=== PATIENT | male | born 1995 | race Caucasian/White ===

== ENCOUNTER 2020-07-06 13:17 | Emergency (ER) | payer OTHER ==
[~2020-07-06] VITALS: Ht 188 cm; Wt 129.3 kg
[2020-07-06 13:40] VITALS: BP 139/64
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
[2020-07-06 14:36] VITALS: BP 139/64
--- NOTE | 2020-07-06 14:37 | NUR ---
Patient discharged with v/s stable. Written and verbal after care instructions given and explained. Patient alert, oriented and verbalized understanding of instructions. Ambulatory with steady gait. All questions addressed prior to discharge. ID band removed. Patient advised to follow up with PMD. Rx of IBUPROFEN, FLEXIRIL, LIDODERM given. Patient educated on indication of medication including possible reaction and side effects. Opportunity to ask questions provided and answered.
== END 2020-07-06 14:37 | disposition home or self-care (01) ==
LOC: MED 13:17
DX: S16.1XXA Strain of muscle, fascia and tendon at neck level, initial encounter (principal); S46.811A Strain of other muscles, fascia and tendons at shoulder and upper arm level, right arm, initial encounter; Z88.0 Allergy status to penicillin; V89.2XXA Person injured in unspecified motor-vehicle accident, traffic, initial encounter; Y93.89 Activity, other specified; Y92.89 Other specified places as the place of occurrence of the external cause; Y99.8 Other external cause status
CPT/HCPCS: 99283

== ENCOUNTER 2021-07-28 15:14 | Emergency (ER) | payer SELFPAY ==
[~2021-07-28] VITALS: Ht 188 cm; Wt 124.7 kg
[2021-07-28 15:32] VITALS: BP 140/72
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
[2021-07-28] MEDS ORDERED: NAPR-54 PO (17:47)
[2021-07-28] MEDS ORDERED: OFLO5SOL27 RIGHT EAR (17:47)
[2021-07-28] MEDS ORDERED: ACET-8386 PO (17:47)
[2021-07-28 18:03] VITALS: BP 140/72
--- NOTE | 2021-07-28 18:04 | NUR ---
Patient discharged with v/s stable. Written and verbal after care instructions ABOUT OTITIS EXTERNA AND EAR FOREIGN BODY given and explained. Patient alert, oriented and verbalized understanding of instructions. Ambulatory with steady gait. All questions addressed prior to discharge. ID band removed. Patient advised to follow up with PMD. Rx of NORCO 5-325, NAPROSYN AND FLOXIN given. Patient educated on indication of medication including possible reaction and side effects. Opportunity to ask questions provided and answered.
== END 2021-07-28 18:04 | disposition home or self-care (01) ==
LOC: MED 15:14
DX: T16.9XXA Foreign body in ear, unspecified ear, initial encounter (principal); X58.XXXA Exposure to other specified factors, initial encounter; Y93.89 Activity, other specified; Y92.89 Other specified places as the place of occurrence of the external cause; Y99.8 Other external cause status
CPT/HCPCS: 99284

== ENCOUNTER 2021-08-01 15:47 | Emergency (ER) | payer SELFPAY ==
[~2021-08-01] VITALS: Ht 188 cm; Wt 127.0 kg
[~2021-08-01 15:47] MED LIST: ACET-8386 PO; NAPR-54 PO; OFLO5SOL27 RIGHT EAR
[2021-08-01] MEDS ORDERED: ACET-8386 PO (16:04)
[2021-08-01] MEDS ORDERED: CIPR500T4 PO (16:04)
[2021-08-01] MEDS ORDERED: KETOROLAC 30 MG/ML VIAL IM ONE (16:05)
[2021-08-01 16:17] VITALS: BP 149/59
--- NOTE | 2021-08-01 16:35 | NUR ---
25/M BIB SELF WITH C/O RIGHT EAR PAIN, STATES HE WAS SEEN HERE LAST WEEK FOR SAME SYMPTOMS AND WAS TOLD TO RETURN IF SYMPTOMS DID NOT IMPROVE. DENIES ANY OTHER COLD SYMPTOMS, REPORTS TAKING IBUPROFEN AND TYLENOL WITH NO RELIEF.
[2021-08-01 17:00] VITALS: BP 149/59
--- NOTE | 2021-08-01 17:00 | NUR ---
Patient discharged with v/s stable. Written and verbal after care instructions ABOUT OTITIS EXTERNA given and explained. Patient alert, oriented and verbalized understanding of instructions. Ambulatory with steady gait. All questions addressed prior to discharge. ID band removed. Patient advised to follow up with PMD. Rx of NORCO 5-325 AND CIPRO given. Patient educated on indication of medication including possible reaction and side effects. Opportunity to ask questions provided and answered.
== END 2021-08-01 17:00 | disposition home or self-care (01) ==
LOC: MED 15:47
DX: H60.91 Unspecified otitis externa, right ear (principal); J45.909 Unspecified asthma, uncomplicated; Z88.0 Allergy status to penicillin; Z79.899 Other long term (current) drug therapy
CPT/HCPCS: 96372; 99283; J1885

== ENCOUNTER 2021-08-05 13:44 | Emergency (ER) | payer SELFPAY ==
[~2021-08-05] VITALS: Ht 188 cm; Wt 122.5 kg
[~2021-08-05 13:44] MED LIST changes: +CIPR500T4 PO
[2021-08-05 14:58] VITALS: BP 145/76
[2021-08-05] MEDS ORDERED: KETOROLAC 30 MG/ML VIAL IM ONE (15:05)
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
[2021-08-05 15:29] LABS: BASOPHILS # (AUTO) 0.1 K/uL (0.00-0.22); BASOPHILS % (AUTO) 0.8 % (0.0-2.0); EOSINOPHILS # (AUTO) 0.1 K/uL (0-0.4); EOSINOPHILS % (AUTO) 0.6 % (0.0-4.0); HEMATOCRIT 45.6 % (36-52); HEMOGLOBIN 15.6 g/dL (12.0-18.0); LYMPHOCYTES # (AUTO) 2.3 K/uL (2.0-11.5); MEAN CORPUSCULAR HEMOGLOBIN 30 pg (27-31); MEAN CORPUSCULAR HGB CONC 34 g/dL (33-37); MEAN CORPUSCULAR VOLUME 86.9 fL (80-94); MONOCYTES # (AUTO) 0.6 K/uL (0.8-1.0); MONOCYTES % (AUTO) 5.5 % (1.7-9.3); NEUTROPHILS # (AUTO) 7.1 K/uL (1.8-7.7); NEUTROPHILS % (AUTO) 70.1 % (42.2-75.2); PLATELET COUNT (AUTO) 395 K/uL (140-450); RED BLOOD CELL COUNT(AUTO) 5.25 MIL/uL (4.20-6.10); RED CELL DISTRIBUTION WIDTH 13.6 % (11.6-13.7); WHITE BLOOD COUNT (AUTO) 10.1 K/uL (4.8-10.8)
[2021-08-05 16:14] LABS: ALBUMIN 4.4 g/dL (3.4-5.0); ANION GAP 16.1 (8-16); CARBON DIOXIDE 26.1 mmol/L (21-32); CREATININE 0.8 mg/dL (0.6-1.3); POTASSIUM 4.2 mmol/L (3.5-5.1); TOTAL BILIRUBIN 0.7 mg/dL (0.0-1.0)
[2021-08-05] MEDS ORDERED: TRAM50TA1 PO (16:20)
[2021-08-05] MEDS ORDERED: CLOT10SO5 OT (16:20)
[2021-08-05] MEDS ORDERED: HYDROcodone/APAP 5/325 MG 1 TAB TAB PO ONE (16:25)
--- NOTE | 2021-08-05 17:30 | NUR ---
Patient discharged with v/s stable. Written and verbal after care instructions ABOUT OTITIS EXTERNA given and explained. Patient alert, oriented and verbalized understanding of instructions. Ambulatory with steady gait. All questions addressed prior to discharge. ID band removed. Patient advised to follow up with PMD. Rx of TRAMADOL HCL AND CLOTRIMAZOLE given. Patient educated on indication of medication including possible reaction and side effects. Opportunity to ask questions provided and answered.
== END 2021-08-05 17:30 | disposition home or self-care (01) ==
LOC: MED 13:44
DX: H60.91 Unspecified otitis externa, right ear (principal); H62.41 Otitis externa in other diseases classified elsewhere, right ear; J45.909 Unspecified asthma, uncomplicated; Z88.0 Allergy status to penicillin; Z79.899 Other long term (current) drug therapy
CPT/HCPCS: 36415; 70480; 80053; 85025; 96372; 99284; J1885

== ENCOUNTER 2021-08-07 18:56 | Emergency (ER) | payer MEDICAID ==
[~2021-08-07] VITALS: Ht 188 cm; Wt 127.5 kg
[~2021-08-07 18:56] MED LIST changes: +CLOT10SO5 OT; +TRAM50TA1 PO
[2021-08-07 19:07] VITALS: BP 142/82
--- NOTE | 2021-08-07 19:10 | NUR ---
PT SENT TO LOBBY
[2021-08-07] MEDS ORDERED: NACL 0.9% 1,000 ML IV ONE (19:45)
[2021-08-07] MEDS ORDERED: ONDANSETRON 4 MG/2 ML VIAL IVP ONE (19:45)
[2021-08-07] MEDS ORDERED: MORPHINE SULFATE 4 MG/ML SYR IVP ONE (19:45)
[2021-08-07] MEDS ORDERED: LEVOFLOXACIN 750 MG/D5W PREMIX 150 ML IV ONE (19:45)
--- NOTE | 2021-08-07 20:25 | NUR ---
26 YO M BIB SELF WITH C/C OF 10/10 STABBING RT EAR PAIN X3WKS. PT STATES HE HAS HAD REOCCURING EAR INFECTIONS IN PAST BUT NOTHING LIKE THIS. PT STATES HE HAS TAKEN OTC MEDS FOR PAIN WITH LITTLE RELIEF. PT PLACED ON MONITOR. PROVIDED WITH WARM BLANKET. ALL NEEDS MET AT THIS TIME. BED LOCKED IN LOWEST POSITION, SDIE RAILS X2 FOR SAFETY. HX:HTN AND ASTHMA RX:ALBUTEROL
--- NOTE | 2021-08-07 20:30 | NUR ---
IV 20G TO LEFT AC ESTABLISHED.
[2021-08-07 20:50] LABS: BASOPHILS # (AUTO) 0.1 K/uL (0.00-0.22); BASOPHILS % (AUTO) 1.1 % (0.0-2.0); EOSINOPHILS # (AUTO) 0.1 K/uL (0-0.4); EOSINOPHILS % (AUTO) 1.3 % (0.0-4.0); HEMATOCRIT 46.5 % (36-52); HEMOGLOBIN 16.1 g/dL (12.0-18.0); LYMPHOCYTES # (AUTO) 3.1 K/uL (2.0-11.5); LYMPHOCYTES % (AUTO) 26.7 % (20.5-51.1); MEAN CORPUSCULAR HEMOGLOBIN 30 pg (27-31); MEAN CORPUSCULAR HGB CONC 35 g/dL (33-37); MEAN CORPUSCULAR VOLUME 86.5 fL (80-94); MONOCYTES # (AUTO) 0.6 K/uL (0.8-1.0); MONOCYTES % (AUTO) 5.4 % (1.7-9.3); NEUTROPHILS # (AUTO) 7.6 K/uL (1.8-7.7); NEUTROPHILS % (AUTO) 65.5 % (42.2-75.2); PLATELET COUNT (AUTO) 458 K/uL (140-450); RED BLOOD CELL COUNT(AUTO) 5.37 MIL/uL (4.20-6.10); RED CELL DISTRIBUTION WIDTH 13.7 % (11.6-13.7); WHITE BLOOD COUNT (AUTO) 11.6 K/uL (4.8-10.8)
[2021-08-07 21:23] LABS: ALBUMIN 4.6 g/dL (3.4-5.0); ANION GAP 15.2 (8-16); CREATININE 0.8 mg/dL (0.6-1.3); POTASSIUM 4.2 mmol/L (3.5-5.1); TOTAL BILIRUBIN 0.6 mg/dL (0.0-1.0)
[2021-08-07] MEDS ORDERED: CIPR7.5S OT (23:24)
[2021-08-07] MEDS ORDERED: LEVO750T51 PO (23:24)
--- NOTE | 2021-08-08 | NUR ---
VERBAL ORDER FROM TO GIVE 600MG IBUPROFEN PO.
[2021-08-08] MEDS ORDERED: IBUPROFEN 600 MG TAB ONE (00:02)
[2021-08-08] MEDS ORDERED: IBUPROFEN 600 MG TAB PO ONE (00:05)
[2021-08-08 00:10] VITALS: BP 114/60
--- NOTE | 2021-08-08 00:10 | NUR ---
Patient discharged with v/s stable. Written and verbal after care instructions given and explained. Patient alert, oriented and verbalized understanding of instructions. Ambulatory with steady gait. All questions addressed prior to discharge. ID band removed. Patient advised to follow up with PMD. Rx of LEVOFLOXACIN, CIPRODEX DROPS, AND NORCO given. Patient educated on indication of medication including possible reaction and side effects. Opportunity to ask questions provided and answered.
== END 2021-08-08 00:10 | disposition home or self-care (01) ==
LOC: MED 18:56
DX: H60.91 Unspecified otitis externa, right ear (principal)
CPT/HCPCS: 36415; 70487; 80053; 83605; 85025; 86140; 96365; 96375; 99285; J1956; J2270; J2405; Q9967; J7030